=== PATIENT | male | born 1970 | race American Indian/Alaskan Native ===

== ENCOUNTER 2017-05-10 14:23 | Emergency (ER) | payer BC ==
[2017-05-10] MEDS ORDERED: MOTRIN PO ONE (19:05)
[2017-05-10] MEDS ORDERED: DUONEB *Not for PRN Use IH ONE (19:05)
--- NOTE | 2017-05-10 19:35 | Emergency Department Report ---
- General Chief Complaint: Sore Throat Stated Complaint: SORE THROAT Time Seen by Provider: 05/10/17 19:04 Source: patient Mode of arrival: Ambulatory Limitations: No Limitations - History of Present Illness Initial Comments: 46-year-old male past medical history none presents with complaint of one-week of cough and some sore throat. Patient denies fevers chills bodyaches generalized malaise. Patient is fully lucid awake alert and oriented 3 not in acute distress denies any chest pain palpitations pleuritic chest pain high fevers and chills nausea vomiting or diarrhea. 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 Patient states his symptoms have been ongoing for approximately 7-8 days. Primary complaints are of sore throat and persistent cough. MD Complaint: cough, sore throat Onset/Timin -: week(s) Severity: moderate Context: sick contacts Associated Symptoms: cough Treatments Prior to Arrival: Acetaminophen, "cold medicine" - Related Data Previous Rx's Medication Instructions Recorded Last Taken Type Azithromycin [Zithromax Z-OSCAR] 250 mg PO QDAY #1 pack 05/10/17 Unknown Rx Benzonatate [Tessalon Perles] 100 mg PO Q8HR PRN #30 capsule 05/10/17 Unknown Rx Dextromethorphan/Benzocaine 1 each PO Q4H PRN #1 lozenge 05/10/17 Unknown Rx [Cepacol Sorethroat-Cough Raghavendra] Naproxen 500 mg PO BID PRN #30 tablet 05/10/17 Unknown Rx Phenylephrine/Dm/Acetaminop/GG 10 ml PO Q8H PRN #1 liquid 05/10/17 Unknown Rx [Mucinex Qbud-Fum-Nnzzpbvcqo Lq] Allergies Allergy/AdvReac Type Severity Reaction Status Date / Time No Known Allergies Allergy Unverified 05/10/17 15:16 ED Review of Systems ROS: Stated complaint: SORE THROAT Other details as noted in HPI Constitutional: denies: chills, fever Eyes: denies: eye pain, eye discharge, vision change ENT: throat pain. denies: ear pain Respiratory: cough. denies: shortness of breath, wheezing Cardiovascular: denies: chest pain, palpitations Endocrine: no symptoms reported Gastrointestinal: denies: abdominal pain, nausea, diarrhea Genitourinary: denies: urgency, dysuria Musculoskeletal: denies: back pain, joint swelling, arthralgia Skin: denies: rash, lesions Neurological: denies: headache, weakness, paresthesias Psychiatric: denies: anxiety, depression Hematological/Lymphatic: denies: easy bleeding, easy bruising ED Past Medical Hx - Past Medical History Previous Medical History?: No - Surgical History Past Surgical History?: No - Social History Smoking Status: Never Smoker Substance Use Type: None - Medications Home Medications: Home Medications Medication Instructions Recorded Confirmed Last Taken Type Azithromycin [Zithromax Z-OSCAR] 250 mg PO QDAY #1 pack 05/10/17 Unknown Rx Benzonatate [Tessalon Perles] 100 mg PO Q8HR PRN #30 capsule 05/10/17 Unknown Rx Dextromethorphan/Benzocaine 1 each PO Q4H PRN #1 lozenge 05/10/17 Unknown Rx [Cepacol Sorethroat-Cough Raghavendra] Naproxen 500 mg PO BID PRN #30 tablet 05/10/17 Unknown Rx Phenylephrine/Dm/Acetaminop/GG 10 ml PO Q8H PRN #1 liquid 05/10/17 Unknown Rx [Mucinex Ksgy-Tze-Qqpovmmkoz Lq] ED Physical Exam - General Limitations: No Limitations General appearance: alert, in no apparent distress - Head Head exam: Present: atraumatic, normocephalic - Eye Eye exam: Present: normal appearance, PERRL, EOMI - ENT ENT exam: Present: mucous membranes moist - Neck Neck exam: Present: normal inspection - Respiratory Respiratory exam: Present: normal lung sounds bilaterally. Absent: respiratory distress - Cardiovascular Cardiovascular Exam: Present: regular rate, normal rhythm. Absent: systolic murmur, diastolic murmur, rubs, gallop - GI/Abdominal GI/Abdominal exam: Present: soft, normal bowel sounds - Rectal Rectal exam: Present: deferred - Extremities Exam Extremities exam: Present: normal inspection - Back Exam Back exam: Present: normal inspection - Neurological Exam Neurological exam: Present: alert, oriented X3 - Psychiatric Psychiatric exam: Present: normal affect, normal mood - Skin Skin exam: Present: warm, dry, intact, normal color. Absent: rash ED Course Vital Signs 05/10/17 05/10/17 05/10/17 15:08 19:09 19:46 Temperature 98.0 F Pulse Rate 83 Pulse Rate [ 70 Anterior Bilateral] Respiratory 20 Rate Respiratory 16 Rate [Anterior Bilateral] Blood Pressure 140/95 05/10/17 19:54 Temperature Pulse Rate Pulse Rate [ 73 Anterior Bilateral] Respiratory Rate Respiratory 16 Rate [Anterior Bilateral] Blood Pressure ED Medical Decision Making - Medical Decision Making A/P: Acute bronchitis 1-chest x-ray negative, flu swab negative, strep negative. Patient clinically does not have constellation of symptoms fully suggestive of influenza but even if he does have influenza symptoms started over 7-8 days ago. I offered patient Tamiflu but patient elected to not take Tamiflu. I updated patient on current CDC guidelines on fluid management and still offered him the medicine but he stated he was not interested in taking it. As symptoms started nearly a week ago this is not an unreasonable decision. I had this conversation in front of the home paraprofessional who witnessed conversation. 2-vital signs stable for discharge. tolerating by mouth fluid and food without difficulty. I advised patient to return to the ED for any worsening symptoms fevers chills with some malaise or lethargy or trouble breathing. Patient stated that he understood my instructions. 3-Mucinex, Tessalon Perles, throat lozenges, Z-Oscar Critical care attestation.: If time is entered above; I have spent that time in minutes in the direct care of this critically ill patient, excluding procedure time. ED Disposition Clinical Impression: Acute bronchitis Qualifiers: Bronchitis organism: unspecified organism Qualified Code(s): J20.9 - Acute bronchitis, unspecified Disposition: DC-01 TO HOME OR SELFCARE Is pt being admited?: No Does the pt Need Aspirin: No Condition: Stable Instructions: Acute Bronchitis (ED), Viral Syndrome (ED) Prescriptions: Azithromycin [Zithromax Z-OSCAR] 250 mg PO QDAY #1 pack Benzonatate [Tessalon Perles] 100 mg PO Q8HR PRN #30 capsule PRN Reason: Cough Dextromethorphan/Benzocaine [Cepacol Sorethroat-Cough Raghavendra] 1 each PO Q4H PRN #1 lozenge PRN Reason: Sore Throat Naproxen 500 mg PO BID PRN #30 tablet PRN Reason: Pain Phenylephrine/Dm/Acetaminop/GG [Mucinex Rpln-Dvg-Jvrespmuik Lq] 10 ml PO Q8H PRN #1 liquid PRN Reason: Cough Referrals: [facility] [Outside] - 3-5 Days [facility] [Outside] - 3-5 Days Forms: Work/School Release Form(ED) Time of Disposition: 20:39
--- NOTE | 2017-05-10 20:15 | XRay Report ---
FINAL REPORT EXAM: XR CHEST ROUTINE 2V HISTORY: worsening cough TECHNIQUE: PA and lateral views of the chest PRIORS: None. FINDINGS: Lines, tubes, and devices: N/A Lungs and pleura: Trachea is normal in position. Lungs are clear of infiltrate, pleural effusion, vascular congestion, or pneumothorax. Cardiomediastinal silhouette: Cardiac and mediastinal silhouettes are unremarkable. Other: Bony structures are intact. IMPRESSION: No acute cardiopulmonary process seen.
[2017-05-10 20:52] VITALS: BP 146/78
== END 2017-05-10 20:50 | disposition home or self-care (01) ==
LOC: ED 14:23
DX: J20.9 Acute bronchitis, unspecified (principal)
CPT/HCPCS: 71046; 87116; 87400; 87430; 94640; 99284